=== PATIENT | male | born 1970 | race Caucasian/White ===

== ENCOUNTER 2016-06-22 00:49 | Emergency (ER) | payer OTHER ==
--- NOTE | ~2016-06-22 | CT4 ---
[facility] A Service of [facility] RADIOLOGY TEXT RESULTS PATIENT: NISA DOWNS JR LOCATION: SED : 66 UNIT #: [id number] AGE: [address]: Edwardo Montenegro DO SEX: M ORDER DR: [id number] [place] [address] [id number] MR#: [id number] Acc #: [id number] NAME: NISA DOWNS JR : 1970 SEX: M STUDY DATE/TIME: 06/22/2016 1:57 UNIT: SED ROOM: STUDY DESCRIPTION: CT Abd and Pelv Wo Cont Attending Physician: Edwardo Montenegro D.O. Ordering Physician: Edwardo Montenegro D.O. Primary Care Physician: Reese Thorne M.D. MEDICAL IMAGING REPORT This report is preliminary unless electronic signature is present. EXAM CT abdomen and pelvis without contrast INDICATION Bilateral flank pain and dysuria for the past 2 months, worse tonight. PROCEDURE Unenhanced CT of the abdomen and pelvis. This CT exam was performed with one or more of the following radiation dose reduction techniques: automatic exposure control, adjustment of mA and/or kV according to patient size, and iterative reconstruction. COMPARISON 01/31/2015 FINDINGS ABDOMEN WITHOUT CONTRAST: Included lung bases are clear. Liver, spleen, adrenal glands, pancreas unremarkable. Previous cholecystectomy. Bowel loops are nondilated, appendix is normal. No radiodense urinary system calculus or hydronephrosis. PELVIS WITHOUT CONTRAST: No radiodense bladder calculus. No aggressive appearing bone lesion. IMPRESSION No acute findings. No radiodense urinary system calculus or hydronephrosis. [facility] A Service of [facility] RADIOLOGY TEXT RESULTS PATIENT: NISA DOWNS JR LOCATION: SED : [birth year] UNIT #: [id number] AGE: [address]: Edwardo Montenegro DO SEX: M ORDER DR: Dictated by... Randolph E. Roosevelt, M.D. THIS IS AN ELECTRONICALLY VERIFIED REPORT Randolph Albert M.D. at 06/25/2016 7:29 AM MICHAEL/nilda TD: 06/22/2016 04:58 JOB #: [id number] MEDICAL IMAGING REPORT Page 1 of 1
[~2016-06-22 00:49] MED LIST: ACETAMINOPHEN325 MG PO; ACETAMINOPHEN500 M5 PO; ALBUTEROL17 GM INH; AMITRIPTYLINE H25 MG PO; ASPIRIN PO; ASPIRIN325 M1 PO; ASPIRIN81 MG PO; BACTROBAN15 GM TOP; BENADRYL25 M1 PO; BENZONATATE PO; BP MED; CARAFATE PO; CEFAZOLIN IV; CHOLESTEROL MED; CIPRO PO; CLEOCIN HCL300 M1 PO; CLEOCIN PO; CLEOCIN150 M1 PO; CLEOCIN150 MG PO; CLINDAMYCIN HC300 MG PO; CLOPIDOGREL75 MG PO; DAKIN'S SOLUTION; DOXYCYCLINE PO; ELMIRON100 MG; EPIPEN0.3 MG/0.1 IM; ERYTHROMYCIN O3.5 GM OD; FAMOTIDINE20 M1 PO; FENOFIBRATE145 MG PO; FLAGYL PO; FLEXERIL10 M1 PO; FLEXERIL10 MG PO; HUMULIN 70/30 V10 ML SQ; HUMULIN N100 U/ML SQ; HUMULIN N300 U/3 ML SUBQ; HYDROCODON-ACE1 EAC7 PO; IMDUR; IMDUR PO; IMDUR-ER30 M1 PO; IMDUR-ER30 M2 PO; JANUVIA PO; KEFLEX500 M1 PO; KEFLEX500 MG PO; LANTUS100 U/M1 SUBQ; LANTUS100 U/ML; LANTUS100 U/ML SQ; LANTUS100 U/ML SUBQ; LANTUS100 UNITS/ SUBQ; LEVAQUIN PO; LEVAQUIN250 MG PO; LIPITOR; LIPITOR PO; LIPITOR20 MG PO; LISINOPRIL10 MG PO; LOPRESSOR PO; LORTAB 5/500 TA1 TA1 PO; METOPROLOL SUCC25 MG PO; NEURONTIN600 MG PO; NITROGLYCERIN0.4 MG SL; NOVOLIN 70/30 U13 M1; NOVOLIN R100 U/ML INJ; NOVOLIN R100 UNITS/; NOVOLIN R100 UNITS/ SUBQ; NOVOLOG100 U/ML; PENTASA PO; PENTASA250 MG PO; PERCOCET 5-3251 TAB PO; PHENERGAN DM1 ML; PHENERGAN PO; PHENERGAN25 M1 PO; PHENERGAN25 MG PO; PLAVIX PO; PREDNISONE PO; PREVACID PO; PRILOSEC20 MG PO; ROBAXIN500 MG PO; TRICOR PO; TRICOR145 MG PO; TYLENOL #3 PO; ULTRAM PO; VICODIN 5/1 TAB 5/50 PO; VICODIN PO; VOLTAREN75 MG PO; Z-PACK; ZITHROMAX PO; ZOCOR20 MG PO; ZOVIRAX800 MG PO; [UNRECOGNIZED DRUG - REMARK] PO
[2016-06-22 01:18] LABS: BASOPHIL# 0.3 X10e3 (0-0.3); BASOPHIL% 4.5 % (0-2.5); EOSINOPHIL# 0.1 X10e3 (0-0.7); EOSINOPHIL% 1.7 % (0.0-7.0); HEMATOCRIT 39.3 % (38.0-50.0); HEMOGLOBIN 13.5 gm/dL (13.0-16.0); LYMPHOCYTE# 1.3 X10e3 (1.0-3.5); LYMPHOCYTE% 22.8 % (17.0-45.0); MEAN CELL VOLUME 87.3 FL (83-96); MEAN CORPUSCULAR HEMOGLOBIN 29.9 PG (28-34); MEAN CORPUSCULAR HGB CONC 34.2 g/dL (30-36); MONOCYTE# 0.3 X10e3 (0-1.0); NEUTROPHIL# 3.8 X10e3 (1.5-7.1); PLATELET COUNT 219 X10e3 (140-420); RED BLOOD COUNT 4.51 X10e (3.90-5.60); RED CELL DISTRIBUTION WIDTH 14.3 % (11.0-15.5); WHITE BLOOD COUNT 5.8 X10e3 (4.0-10.5)
[2016-06-22 01:20] LABS: DIFF IND NO
[2016-06-22 01:23] LABS: URINE SOURCE CLEAN CATCH
[2016-06-22 01:26] LABS: URINE APPEARANCE CLEAR; URINE BILIRUBIN NEG (NEG); URINE BLOOD 1+ (NEG); URINE COLOR YELLOW; URINE GLUCOSE 300 MG/DL (NORM); URINE KETONE NEG (NEG); URINE LEUKOCYTE ESTERASE NEG (NEG); URINE NITRATE NEG (NEG); URINE PH 6.5 (5-8); URINE PROTEIN 2+ (NEG); URINE SPECIFIC GRAVITY 1.015 (1.003-1.035); URINE UROBILINOGEN 0.2 MG/DL (NORM)
[2016-06-22 01:31] LABS: MICRO INDICATED? YES
[2016-06-22 01:32] LABS: CULTURE INDICATED? NO; URINE BACTERIA NEG (NEG); URINE SQUAMOUS EPITHELIAL CELL OCCAS /[HPF]
[2016-06-22 01:36] LABS: ALBUMIN SERUM 3.2 g/dL (3.5-5.0); AMPHETAMINE NEG (NEG); BARBITURATES NEG (NEG); BENZODIAZEPINES NEG (NEG); BILIRUBIN,TOTAL 0.1 mg/dL (0.2-2.0); BUN/CREATININE RATIO 23.33; CALCIUM SERUM 8.8 mg/dL (8.4-10.2); COCAINE NEG (NEG); CREATININE SERUM 0.9 mg/dL (0.6-1.4); GLOM FILT RATE Estimated 101.4 mL/min (>60); MARIJUANA NEG (NEG); OPIATES NEG (NEG); POTASSIUM 4.2 mmol/L (3.5-5.1); PROTEIN TOTAL SERUM 6.4 g/dL (6.0-8.3); TRICYCLIC ANTIDEPRESSANTS NEG (NEG); U METHADONE NEG (NEG)
[2016-06-22 03:35] LABS: POC - CKMB <1.0 ng/mL (0.0-7.9); POC - TROPONIN <0.05 ng/mL (<=0.05)
[2016-06-22] MEDS ORDERED: VOLTAREN50 MG PO (03:52)
[2016-06-22] MEDS ORDERED: CIPRO PO (03:52)
== END 2016-06-22 04:00 | disposition home or self-care (01) ==
LOC: SED 00:49
PROVIDERS: Emergency Medicine
DX: K62.89 Other specified diseases of anus and rectum (principal); E11.65 Type 2 diabetes mellitus with hyperglycemia; E78.5 Hyperlipidemia, unspecified; K50.90 Crohn's disease, unspecified, without complications; F17.200 Nicotine dependence, unspecified, uncomplicated; Z88.0 Allergy status to penicillin; Z88.2 Allergy status to sulfonamides; Z88.5 Allergy status to narcotic agent; Z90.49 Acquired absence of other specified parts of digestive tract; Z98.890 Other specified postprocedural states; Z86.14 Personal history of Methicillin resistant Staphylococcus aureus infection
CPT/HCPCS: 36415; 74176; 80053; 80307; 81003; 82553; 82947; 83690; 83874; 84484; 85025; 96361; 96374; 96375; 99284; J1885; J2405

== ENCOUNTER 2016-07-01 23:36 | Inpatient (IN) | payer OTHER ==
--- NOTE | ~2016-07-01 | CR126 ---
[facility] A Service of [facility] RADIOLOGY TEXT RESULTS PATIENT: NISA DOWNS JR LOCATION: [place] [address] : [birth year] UNIT #: [id number] AGE: [address]: Devante Rico MD SEX: M ORDER DR: [id number] [facility] [address] [place], [place] [address] [id number] I MR#: [id number] Acc #: [id number] NAME: NISA DOWNS JR : 1970 SEX: M STUDY DATE/TIME: 07/01/2016 23:25 UNIT: CEDOF ROOM: 50844 STUDY DESCRIPTION: CR Foot Complete Min 3 View Lt Attending Physician: Devante Rico M.D. Ordering Physician: Rupert Guzman P.A.-C. Primary Care Physician: Reese Thorne M.D. MEDICAL IMAGING REPORT This report is preliminary unless electronic signature is present EXAM Left foot HISTORY Left foot pain and cellulitis for four days. COMPARISON: 12/20/15 FINDINGS Three views of the left foot were obtained. The bones are normal except for mild degenerative change. There is no foreign body visible. IMPRESSION Mild degenerative change, otherwise normal. Dictated by... Naseem Belcher M.D. THIS IS AN ELECTRONICALLY VERIFIED REPORT Naseem Belcher M.D. at 07/02/2016 1:25 PM ALFONSO/romel TD: 07/02/2016 08:53 JOB #: [id number] MEDICAL IMAGING REPORT Page 1 of 1 COPY
--- NOTE | ~2016-07-01 | CO ---
Unit #: [id number] #: [id number] Patient: NISA DOWNS JR [id number] [address] [place], [place] [address] [id number] I MR#: [id number] NAME: NISA DOWNS JR ROOM: 215 Age: 45 Sex: M Admission Date: 07/02/2016 : 1970 Attending Physician: Devante Rico M.D. Primary Care Physician: Reese Thorne M.D. Consultation Date: 07/03/2016 CONSULTATION REPORT REASON FOR CONSULTATION Antibiotic management in a patient with diabetic left foot wound. HISTORY OF PRESENT ILLNESS This is a 45-year-old male known to our service last year for a right sided diabetic foot ulcer. Patient now has a draining wound on his left foot with associated erythema. The patient has been admitted to the hospital and is being followed by the podiatry team. The patient's MRI is currently pending. He was placed on meropenem and vancomycin secondary to a penicillin allergy. PAST MEDICAL HISTORY 1. Crohn disease. 2. Coronary artery disease, status post stents. 3. Possible TIA in 2000. 4. Migraines. 5. Vitiligo. 6. Hyperlipidemia. 7. Diabetes with peripheral neuropathy. 8. History of MRSA infection. 9. GERD. 10. Obstructive sleep apnea. 11. Amputation of the fourth and fifth toes on the right side. 12. Left knee surgery. 13. Cholecystectomy. 14. Vasectomy. ALLERGIES Penicillin with unknown reaction. MEDICATIONS Vancomycin and meropenem. For other medications, please refer to patient's MAR. SOCIAL HISTORY He lives with others. He has occasional tobacco use, no alcohol or drug use. REVIEW OF SYSTEMS No fever, chills, nausea, vomiting, chest pain, shortness of breath. Positive drainage from his foot with redness. PHYSICAL EXAMINATION VITAL SIGNS: Temperature 97.7, pulse is 71, blood pressure is 106/67, Unit #: [id number] #: [id number] Patient: NISA DOWNS JR respiratory rate is 16. GENERAL: This is a no apparent distress male who is resting in the bed comfortably. HEENT/NECK: His pupils are equal. His neck is supple. CARDIOVASCULAR: S1, S2. Regular rate and rhythm. PULMONARY: Clear to auscultation bilaterally with no wheezes or rhonchi noted. ABDOMEN: Positive bowel sounds. Soft and nontender. EXTREMITIES: Left foot with ulcer on the bottom without any active drainage at this time but significant cellulitis noticed on the foot. DIAGNOSTIC STUDIES LABORATORY: BUN 25, creatinine 0.8, sodium 139, potassium 4.0, chloride 101, CO2 28, white blood cell count 6.9, hemoglobin 14.2, hematocrit 41.7, platelets 259, sed rate 72, CRP 0.5. IMAGING: MRI is pending. IMPRESSION This is a 45-year-old diabetic male with a diabetic foot ulcer and infection with associated cellulitis on the left lower extremity. At this time, will follow up MRI findings for osteomyelitis and cultures. Due to patient's allergy to penicillin, will continue vancomycin and meropenem depending on patient's further course of action. Dictated by... Gracy Nichole A.P.R.N. for Davina Sutton TD: 07/03/2016 11:38 JOB #: [id number] CONSULTATION REPORT Page 1 of 1 X X CONSULTATION REPORT
--- NOTE | ~2016-07-01 | DS ---
Unit #: [id number] #: [id number] Patient: NISA DOWNS JR [id number] [address] [place], [place] [address] [id number] I MR#: [id number] NAME: NISA DOWNS JR ROOM: 215 Age: 45 Sex: M Admission Date: 07/02/2016 : 1970 Discharge Date: 07/04/2016 Attending Physician: Devante Rico M.D. Primary Care Physician: Reees Thorne M.D. DISCHARGE SUMMARY DISCHARGE DIAGNOSES 1. Left diabetic foot infection. 2. Uncontrolled type 2 diabetes. 3. Essential hypertension. 4. History of coronary artery disease with stent placement back in March 2016. 5. History of methicillin-resistant Staphylococcus aureus. 6. Crohn disease. 7. Cardiomyopathy with left ventricular ejection fraction of 35% to 40%. CONSULTANTS 1. Dr. Pacheco of infectious disease. 2. Dr. Quintanilla with podiatry. PROCEDURES None. DIAGNOSTIC STUDIES IMAGING: Chest x-ray on 07/01/16. Impression - No active disease. X-ray of foot on 07/01/16. Impression - Mild degenerative change; otherwise, normal MRI of the foot with and without contrast on 07/03/16. Impression - Soft tissue edema and inflammation throughout the visualized forefoot, most consistent with cellulitis. The marked open wounds along the plantar aspect of the forefoot demonstrate no drainable fluid collections. No MR evidence of osteomyelitis. No significant joint effusions. LABS: The patient's labs on the day of discharge include a BMP with glucose of 110, BUN 18, creatinine 1, sodium 135, potassium 4.1, chloride 108, CO2 19, calcium 8.5, magnesium 2.1, total protein 7.6, albumin 3.7, total bilirubin less than 0.01. Wound swab of the foot had no organism growth. Blood culture had no growth, as well. HOSPITAL COURSE The patient is a 45-year-old male with past medical history of uncontrolled type 2 diabetes (hemoglobin A1C was 12.1), coronary artery disease with recent stent back in March 2016 at [facility], essential hypertension, Crohn disease, cardiomyopathy with ejection fraction of 35% to 40%. He presented to the emergency department due to left foot pain. The patient states that he was well until 2 days prior to admission when Unit #: [id number] #: [id number] Patient: NISA DOWNSJR he noticed purulent drainage at the bottom of his foot. He realized that he had 2 wounds on the bottom of his foot. He presented to the emergency department where he had extensive cellulitis extending to his horan. He denied fever, sweats, chills. He does have history of MRSA in the past. He was admitted for diabetic foot infection and was being treated with vancomycin, as well as meropenem. He was seen in consultation with podiatry, Dr. Quintanilla, who felt that the patient could continue with local wound care and that the patient's infection is worse due to tinea pedis. At this time the patient does not appear systemically infected. MRI is negative for osteomyelitis. The patient will be discharged with antibiotics orally and clotrimazole applied topically per infectious disease recommendation. DISCHARGE CONDITION/DISPOSITION Safe to home. DISCHARGE FOLLOWUP 1. He is to follow up with his primary care physician within 1-2 weeks upon discharge. 2. The patient is to follow up with Dr. Pacheco at the [facility] in 1-2 weeks. The patient should call the office for an appointment. DISCHARGE DIET Resume heart healthy diet with [employer] recommended with consistent carb. DISCHARGE MEDICINES 1. Gabapentin 800 mg orally t.i.d. 2. Clotrimazole 1% topically, apply to feet and the webs in between b.i.d. 3. Hydroxyzine (Vistaril) 50 mg orally t.i.d. as needed. 4. Welchol 3 tablets orally t.i.d. 5. Lopressor 25 mg orally b.i.d. 6. Lasix 20 mg orally daily. 7. TriCor 145 mg orally daily. 8. Lipitor 40 mg orally at bedtime. 9. Lantus 55 units subcutaneously in the morning and 50 units subcutaneously in the evening. 10. NovoLog 12 units subcutaneously at breakfast, 8 units subcutaneously at lunch, 20 units subcutaneously at dinner. 11. Reglan 10 mg orally daily. 12. Aspirin 81 mg orally daily. 13. Ultram 50 mg q.6 hours as needed for pain. 14. Ranexa 1,000 mg orally b.i.d. 15. Brilinta 90 mg orally b.i.d. 16. Protonix 40 mg orally daily. 17. Imdur ER 30 mg orally daily. 18. Nitroglycerin 0.4 mg sublingual q.5 minutes as needed for chest pain. 19. Vitamin D 2 tablets orally daily. 20. Plavix 75 mg orally daily. 21. The patient is to continue with wound care, normal saline wet-to-dry to the legs. Unit #: [id number] #: [id number] Patient: NISA DOWNS JR Dictated by... Jaja Jeffery PA-C for Davina Carter/rufus TD: 07/05/2016 08:27 JOB #: [id number] DISCHARGE SUMMARY Page 1 of 1 X X DISCHARGE SUMMARY
--- NOTE | ~2016-07-01 | EKG ---
PATIENT: NISA DOWNS UNIT #: [id number] Ventricular Rate: 88 BPM Atrial Rate: 88 BPM P-R Interval: 148 ms QRS Duration: 90 ms Q-T Interval: 372 ms QTC Calculation(Bezet): 450 ms P [place]: 41 degrees Calculated R [place]: 90 degrees Calculated T [place]: 154 degrees Diagnosis Line: Normal sinus rhythm Diagnosis Line: Lateral infarct , age undetermined Diagnosis Line: Abnormal ECG Diagnosis Line: When compared with ECG of 19-DEC-2015 20:33, Diagnosis Line: Lateral infarct is now Present Diagnosis Line: T wave inversion now evident in Lateral leads Diagnosis Line: Confirmed by ANTONELLA AVILEZ MD ([id number]) on 07/03/2016 Diagnosis Line: 5:36:14 AM INTERPRETING MD: RAGHAV HANKS
--- NOTE | ~2016-07-01 | CR72 ---
[facility] A Service of [facility] RADIOLOGY TEXT RESULTS PATIENT: NISA DOWNS JR LOCATION: [place] [address] : [birth year] UNIT #: [id number] AGE: [address]: Devante Rico MD SEX: M ORDER DR: [id number] [facility] [address]. [place], [place] [address] [id number] MR#: [id number] Acc #: [id number] NAME: NISA DOWNS JR : 1970 SEX: M STUDY DATE/TIME: 07/01/2016 23:24 UNIT: [facility] ROOM: 58860 STUDY DESCRIPTION: CR Chest Single View Portable Attending Physician: Devante Rico M.D. Ordering Physician: Rupert Guzman P.A.-C. Primary Care Physician: Reese Thorne M.D. MEDICAL IMAGING REPORT This report is preliminary unless electronic signature is present EXAM Portable chest INDICATION Shortness of air for 4 days. COMPARISON 12/19/2015. FINDINGS A portable view of the chest was obtained. The heart size and vascularity are normal. The lungs are clear. The bones are normal. IMPRESSION No active disease. Dictated by... Naseem Belcher M.D. THIS IS AN ELECTRONICALLY VERIFIED REPORT Naseem Belcher M.D. at 07/02/2016 1:25 PM ALFONSO/miriam TD: 07/02/2016 08:52 JOB #: [id number] MEDICAL IMAGING REPORT Page 1 of 1 COPY
--- NOTE | ~2016-07-01 | MR58 ---
[facility] A Service of [facility] RADIOLOGY TEXT RESULTS PATIENT: NISA DOWNS JR LOCATION: A : 68 UNIT #: [id number] AGE: [address]: Devante Rico MD SEX: M ORDER DR: [id number] [facility] [address]. [place], [place] [address] [id number] I MR#: [id number] Acc #: [id number] NAME: NISA DOWNS : 1970 SEX: M STUDY DATE/TIME: 07/03/2016 15:58 UNIT: [facility] ROOM: [facility] STUDY DESCRIPTION: MR Foot WWo Contrast Lt Attending Physician: Devante Rico M.D. Ordering Physician: Devante Rico M.D. Primary Care Physician: Reese Thorne M.D. MRI CENTER REPORT This report is preliminary unless electronic signature is present. EXAM Left foot MRI without and with contrast, 07/03/2016 HISTORY A 45-year-old male with left foot pain since 06/28/2016. Open wounds along the plantar aspect of the forefoot. History of diabetes and hypertension. Order requests evaluation for osteomyelitis. COMPARISON Left foot x-rays, 07/01/2016 TECHNIQUE Multiplanar, multisequence high field MR imaging of the left forefoot was performed both pre and post administration of IV gadolinium (20 mL MultiHance). FINDINGS External markers are placed over the wounds along the plantar aspect of the forefoot. Deep to these markers, there is minimal subcutaneous soft tissue edema, but no evidence of abnormal fluid collection to suggest abscess. There is mild generalized subcutaneous soft tissue edema surrounding the forefoot and extending along the dorsum of the foot. This is most consistent with cellulitis given the provided history. No deep intermuscular fluid collections. No MR evidence of osteomyelitis. No evidence of a significant joint effusion to suggest septic arthritis. There is generalized edema and early atrophy involving the intrinsic musculature of the forefoot, most likely secondary to chronic diabetic neuropathic changes. IMPRESSION Soft tissue edema and inflammation throughout the visualized forefoot, most consistent with cellulitis. The marked open wounds along the plantar STS. [facility] A Service of [facility] RADIOLOGY TEXT RESULTS PATIENT: NISA DOWNS JR LOCATION: [facility] 215-01 : [birth year] UNIT #: [id number] AGE: [address]: Devante Rico MD SEX: M ORDER DR: aspect of the forefoot demonstrate no drainable fluid collections. No MR evidence of osteomyelitis. No significant joint effusions. Dictated by... Master Prather M.D. THIS IS AN ELECTRONICALLY VERIFIED REPORT Master Prather M.D. at 07/04/2016 10:38 AM Gabbi TD: 07/03/2016 21:26 JOB #: [id number] MRI CENTER REPORT Page 1 of 1 COPY
--- NOTE | ~2016-07-01 | HP ---
Unit #: [id number] #: [id number] Patient: NISA DOWNS JR [id number] [address] [place], [place] [address] [id number] I MR#: [id number] NAME: NISA DOWNS JR ROOM: [address] Age: 45 Sex: M Admission Date: 07/02/2016 : 1970 Attending Physician: Elena Sterling M.D. Primary Care Physician: Reese Thorne M.D. HISTORY AND PHYSICAL CHIEF COMPLAINT Diabetic left foot infection, wounds and cellulitis. HISTORY OF PRESENT ILLNESS This pleasant 45-year-old male with CAD, IDDM, is admitted for left foot wounds and cellulitis. The patient states that he was well until two days ago and he noticed bloody purulent drainage from the bottom of his foot. He realized he had two wounds on the bottom of his foot and presented to this emergency department late last evening where he also has cellulitis extending up to the left horan. He denies fever, sweats or chills. Serum glucose was 293. In the ER, he was bolused a liter of saline, given 2 g of vancomycin as the patient does have a history of MRSA infections. He is also written for Invanz. PAST MEDICAL HISTORY 1. Crohn's disease diagnosed in 2005 by colonoscopy. 2. CAD status post multivessel PCI and stents. The patient states that he was recently admitted to [facility] on March for three MIs requiring further PCI and stents. 3. Possible TIA 2000. 4. Migraines. 5. Vitiligo. 6. Hyperlipidemia. 7. IDDM with peripheral neuropathy since 1995. 8. History of MRSA infections. 9. GERD. 10. Obstructive sleep apnea. 11. Amputation of the fourth and fifth toes of the right foot. 12. Left knee surgery. 13. Cholecystectomy. 14. Vasectomy. SOCIAL HISTORY The patient lives with his and two children. He smokes occasional cigarettes, does not drink alcohol or use drugs. FAMILY HISTORY Thyroid, liver and stomach cancer, CAD. ALLERGIES Unknown reaction to penicillin. Also, allergic to morphine and sulfa. HOME MEDICATIONS Unit #: [id number] #: [id number] Patient: NISA DOWNSJR From the best I can determine include: 1. Lantus 55 units in the morning, 50 units in the evening. 2. Lopressor 25 mg b.i.d. 3. Aspirin 325 mg daily. 4. Lipitor 10 mg daily. 5. TriCor 75 mg daily. 6. Plavix 75 mg daily. 7. Novolin sliding scale, which usually equals out to 12 units before meals. REVIEW OF SYSTEMS Notable for wounds over the left foot with drainage and cellulitis up to the left horan, Crohn's disease, CAD, migraine headaches, vitiligo, hyperlipidemia, GERD, IDDM, neuropathy, obstructive sleep apnea, above-mentioned surgeries. All other systems were reviewed and are otherwise negative. PHYSICAL EXAMINATION GENERAL APPEARANCE: A pleasant, 45-year-old male currently in no acute distress. VITAL SIGNS: Temperature 97.6. Pulse 102. Respirations 18. Blood pressure 152/101. O2 saturation 100% on room air. HEENT: Eyes: PERRLA. Extraocular muscles are intact. Pharynx is benign with poor dentition. NECK: Supple without adenopathy or thyromegaly. CHEST: Clear. CARDIAC: Normal S1, S2 without S3, S4 or murmur. ABDOMEN: Bowel sounds are present. No hepatosplenomegaly, tenderness or masses. EXTREMITIES: No edema. Pedal pulses are present. Cellulitis left horan. Wound over the medial first metatarsal region and between the second and third metatarsal region dorsal of the foot with purulent drainage. NEUROLOGIC: The patient is awake, alert, oriented. Cranial nerves are intact. Equal strength throughout. DIAGNOSTIC STUDIES LABORATORY: Hematocrit 41.7, normal white count, platelet count. SMA-12: Glucose 293, BUN 25, alkaline phosphatase 110, lactic acid 1.8. Urinalysis: Positive protein, glucose. IMAGING: Plain x-rays of the left foot show DJD. Chest x-ray: No acute disease. ASSESSMENT 1. Diabetic left foot infection with wounds and purulent drainage along with cellulitis which extends up to the left horan. 2. Uncontrolled insulin-dependent diabetes mellitus with neuropathy. 3. Essential hypertension. 4. CAD status post multivessel PCI and stents. 5. History of MRSA. 6. Crohn's disease. 7. Penicillin allergy. PLANS 1. Vancomycin and Invanz pending cultures. 2. Podiatry to see. 3. Old records. 4. DVT prophylaxis. Unit #: [id number] #: [id number] Patient: NISA DOWNSJR 5. Diabetic control. 6. We will verify home medicines. Dictated by Elena Sterling M.D. AML/bd TD: 07/02/2016 06:05 JOB #: [id number] HISTORY AND PHYSICAL Page 1 of 1 X Elena Sterling MD X HISTORY AND PHYSICAL
[2016-07-01 23:28] LABS: URINE SOURCE CLEAN CATCH
[~2016-07-01 23:36] MED LIST changes: +VOLTAREN50 MG PO
[2016-07-01 23:37] LABS: URINE APPEARANCE CLEAR; URINE BILIRUBIN NEG (NEG); URINE BLOOD 1+ (NEG); URINE COLOR YELLOW; URINE GLUCOSE >1000 MG/DL (NEG); URINE KETONE NEG (NEG); URINE LEUKOCYTE ESTERASE NEG (NEG); URINE NITRATE NEG (NEG); URINE PROTEIN 2+ (NEG); URINE UROBILINOGEN 0.2 MG/DL (NEG)
[2016-07-01 23:40] LABS: CULTURE INDICATED? NO; U HYALINE CASTS AUWI 0-2 /[LPF]; URINE BACTERIA AUWI NEG (NEGATIVE); URINE SQUAMOUS EPITHELIAL CELL NONE SEEN /[HPF]; UWBCS1 AUWI 0-2 (0-5)
[2016-07-02 00:59] LABS: BASOPHIL# 0.1 X10e3 (0-0.3); BASOPHIL% 1.1 % (0-2.5); EOSINOPHIL# 0.1 X10e3 (0-0.7); EOSINOPHIL% 1.9 % (0.0-7.0); HEMATOCRIT 41.7 % (38.0-50.0); HEMOGLOBIN 14.2 gm/dL (13.0-16.0); LYMPHOCYTE# 2.2 X10e3 (1.0-3.5); MEAN CORPUSCULAR HGB CONC 34.1 g/dL (30-36); MEAN PLATELET VOLUME 8.7 FL (6.5-11.5); MONOCYTE# 0.6 X10e3 (0-1.0); MONOCYTE% 8.1 % (3.0-12.0); NEUTROPHIL# 3.9 X10e3 (1.5-7.1); NEUTROPHIL% 56.9 % (40-75); PLATELET COUNT 259 X10e3 (140-420); RED BLOOD COUNT 4.73 X10e (3.90-5.60); RED CELL DISTRIBUTION WIDTH 14.2 % (11.0-15.5); WHITE BLOOD COUNT 6.9 X10e3 (4.0-10.5)
[2016-07-02 01:00] LABS: DIFF IND NO
[2016-07-02 01:20] LABS: CALCIUM SERUM 9.2 mg/dL (8.4-10.2); CARBON DIOXIDE 28 mmol/L (22-31); CHLORIDE 101 mmol/L (100-111); SODIUM 139 mmol/L (135-145)
[2016-07-02 01:31] LABS: ALBUMIN SERUM 3.7 g/dL (3.5-5.0); ALKALINE PHOSPHATASE 110 U/L (32-92); ALT (SGPT) 14 U/L (10-40); AST (SGOT) 20 U/L (10-42); BILIRUBIN, DIRECT <0.1 mg/dL (0.0-0.2); BILIRUBIN,TOTAL <0.1 mg/dL (0.2-2.0); BLOOD UREA NITROGEN 25 mg/dL (9-23); BUN/CREATININE RATIO 20.83; CREATININE SERUM 1.2 mg/dL (0.6-1.4); GLOM FILT RATE Estimated 71.6 mL/min (>60); GLUCOSE FASTING 293 mg/dL (70-110); PROTEIN TOTAL SERUM 7.6 g/dL (6.0-8.3)
[2016-07-02] MEDS ORDERED: LASIX20 MG PO (08:45)
[2016-07-02] MEDS ORDERED: LOPRESSOR PO (08:46)
[2016-07-02] MEDS ORDERED: IMDUR-ER30 M1 PO (08:46)
[2016-07-02] MEDS ORDERED: ASPIRIN EC81 M1 PO (08:46)
[2016-07-02] MEDS ORDERED: WELCHOL625 M1 PO (08:47)
[2016-07-02] MEDS ORDERED: LIPITOR40 MG PO (08:47)
[2016-07-02] MEDS ORDERED: TRICOR145 MG PO (08:47)
[2016-07-02] MEDS ORDERED: NEURONTIN800 MG PO (08:48)
[2016-07-02] MEDS ORDERED: ATARAX PO (08:48)
[2016-07-02] MEDS ORDERED: NOVOLOG FL100 UNIT/1 SUBQ ×3 (08:49)
[2016-07-02] MEDS ORDERED: LANTUS SOL100 UNIT/1 SUBQ ×2 (08:50)
[2016-07-02] MEDS ORDERED: REGLAN10 MG PO (08:51)
[2016-07-02] MEDS ORDERED: RANEXA1000 MG PO (08:52)
[2016-07-02] MEDS ORDERED: BRILINTA90 MG PO (08:52)
[2016-07-02] MEDS ORDERED: NITROSTAT0.4 MG SL (08:52)
[2016-07-02] MEDS ORDERED: PROTONIX PO (08:52)
[2016-07-02] MEDS ORDERED: ULTRAM PO (08:53)
[2016-07-02] MEDS ORDERED: VITAMIN D1000 UNI2 PO (08:53)
[2016-07-02 17:07] LABS: CREATININE SERUM 0.8 mg/dL (0.6-1.4); GLOM FILT RATE Estimated 106.4 mL/min (>60)
[2016-07-04 05:36] LABS: HEMATOCRIT 40.5 % (38.0-50.0); HEMOGLOBIN 12.9 gm/dL (13.0-16.0); MEAN CELL VOLUME 89.9 FL (83-96); MEAN CORPUSCULAR HEMOGLOBIN 28.7 PG (28-34); MEAN CORPUSCULAR HGB CONC 31.9 g/dL (30-36); MEAN PLATELET VOLUME 8.8 FL (6.5-11.5); RED BLOOD COUNT 4.5 X10e (3.90-5.60); RED CELL DISTRIBUTION WIDTH 14.2 % (11.0-15.5); WHITE BLOOD COUNT 7.5 X10e3 (4.0-10.5)
[2016-07-04 06:44] LABS: CALCIUM SERUM 8.5 mg/dL (8.4-10.2); POTASSIUM 4.1 mmol/L (3.5-5.1)
[2016-07-04 06:54] LABS: GLOM FILT RATE Estimated 89.2 mL/min (>60); MAGNESIUM 2.1 mg/dL (1.6-3.0)
[2016-07-04] MEDS ORDERED: CLEOCIN PO (12:16)
[2016-07-04] MEDS ORDERED: LOTRIMIN 1% CR30 GM EXT (12:17)
[2016-07-04] MEDS ORDERED: CIPRO PO (12:17)
== END 2016-07-04 15:29 | disposition home or self-care (01) | DRG 638 ==
LOC: CED 23:36 → CEDOF 07-02 03:45 → C2A 07-02 09:32
PROVIDERS: Family Medicine; Physician Assistant; Physician Assistant Medical
DX: E11.628 Type 2 diabetes mellitus with other skin complications (principal); L03.116 Cellulitis of left lower limb; L97.529 Non-pressure chronic ulcer of other part of left foot with unspecified severity; E11.42 Type 2 diabetes mellitus with diabetic polyneuropathy; I42.9 Cardiomyopathy, unspecified; E11.621 Type 2 diabetes mellitus with foot ulcer; K50.90 Crohn's disease, unspecified, without complications; E11.65 Type 2 diabetes mellitus with hyperglycemia; Z79.4 Long term (current) use of insulin; I25.10 Atherosclerotic heart disease of native coronary artery without angina pectoris; Z86.73 Personal history of transient ischemic attack (TIA), and cerebral infarction without residual deficits; K21.9 Gastro-esophageal reflux disease without esophagitis; G47.33 Obstructive sleep apnea (adult) (pediatric); Z90.49 Acquired absence of other specified parts of digestive tract; Z89.421 Acquired absence of other right toe(s); Z86.14 Personal history of Methicillin resistant Staphylococcus aureus infection; Z88.0 Allergy status to penicillin
CPT/HCPCS: 36415; 71010; 73630; 73720; 80048; 80076; 81003; 82565; 82947; 83036; 83605; 83735; 85025; 85027; 85652; 86140; 87040; 87070; 87205; 93005; 96365; 96366; 99285; A9577; J1335; J1650; J1815; J2185; J3370